=== PATIENT | male | born 1995 | race Caucasian/White ===

== ENCOUNTER 2021-10-05 22:09 | Emergency (ER) | payer SELFPAY ==
[2021-10-05 22:14] VITALS: BP 137/75
[2021-10-05] MEDS ORDERED: FAMOTIDINE 20 MG/2 ML INJ IV ONE (22:17)
[2021-10-05] MEDS ORDERED: methylPREDNISolone Sod Succinate 125 MG/2 ML INJ IM ONE (22:17)
[2021-10-05] MEDS ORDERED: diphenhydrAMINE 50 MG/ML VIAL IM ONE (22:17)
--- NOTE | 2021-10-05 22:50 | Emergency Department Report ---
HPI - General Chief Complaint: Allergic Reaction Time Seen by Provider: 10/05/21 22:26 - HPI HPI: Patient 26-year-old male with history of seasonal allergies and cocaine abuse. Who presents for hives and itching to bilateral arms and face. Patient advises unknown trigger trigger denies suspicious food as he had tacos as usual for dinner. Symptoms started approximately 2 hours ago. Symptoms are exacerbated by scratching. Relieved by nothing tried. Patient denies shortness of breath there is no chest pain no dizziness or lightheadedness. Primary symptom is itching and hives. Patient has not taking EpiPen at home. Symptoms are rated at 5/10 for allergic reaction. Course is similar to previous allergic reactions. Patient denies substance. ED Past Medical Hx - Past Medical History Additional medical history: allergies, Hives - Social History Smoking Status: Current Every Day Smoker Substance Use Type: Alcohol, Cocaine - Medications Home Medications: Home Medications Medication Instructions Recorded Confirmed Last Taken Type EPINEPHrine [Epipen 2-Mike] 0.3 mg IM PRN PRN #1 each 10/06/21 Unknown Rx Famotidine [Pepcid] 20 mg PO BID 7 Days #14 tablet 10/06/21 Unknown Rx diphenhydrAMINE [Benadryl CAP] 25 mg PO Q6HR PRN #30 capsule 10/06/21 Unknown Rx predniSONE [Deltasone] 40 mg PO QDAY 5 Days #10 tab 10/06/21 Unknown Rx ED Review of Systems ROS: Stated complaint: ALLERGIC REACTION Other details as noted in HPI Constitutional: denies: chills, fever, malaise Eyes: denies: eye pain, eye discharge, vision change ENT: denies: ear pain, throat pain Respiratory: denies: cough, shortness of breath, wheezing Cardiovascular: denies: chest pain, palpitations Endocrine: no symptoms reported Gastrointestinal: denies: abdominal pain, nausea, vomiting, diarrhea Genitourinary: denies: urgency, dysuria Musculoskeletal: denies: back pain, joint swelling, arthralgia Skin: denies: rash, lesions Neurological: denies: headache, weakness, numbness, paresthesias, confusion, vertigo Psychiatric: denies: anxiety, depression Hematological/Lymphatic: denies: easy bleeding, easy bruising Physical Exam - Physical Exam Vital Signs: Vital Signs 10/05/21 22:12 Temperature 97.4 F L Pulse Rate 113 H Respiratory 18 Rate Blood Pressure 137/75 [Left] O2 Sat by Pulse 100 Oximetry General: Patient alert oriented x3 respirations are even and nonlabored . Physical Exam: lungs sounds clear, there is no wheezing no stridor. No hives to bilateral arms and cheeks. Has a smooth mild erythema raised. There is no weeping no open skin no respiratory distress ED Course Vital Signs 10/05/21 22:12 Temperature 97.4 F L Pulse Rate 113 H Respiratory 18 Rate Blood Pressure 137/75 [Left] O2 Sat by Pulse 100 Oximetry - Reevaluation(s) Reevaluation #1: solumedrol, benadryl, pepcid IM, symptoms are improved, respirations even nonlabored. Patient is alert oriented x3 speaking in full sentences. 10/05/21 22:59 ED Medical Decision Making - Medical Decision Making Symptoms are resolved plan DC to home with prescriptions. EpiPen instructions completed. Patient will follow up with primary care doctor in 2 to 3 days. Patient will return to emergency department should symptoms worsen. Patient DC'd home in stable condition at this time. Patient is currently alert oriented x3 amatory with steady gait respirations are even and nonlabored. There is no wheezing no stridor. Critical care attestation.: If time is entered above; I have spent that time in minutes in the direct care of this critically ill patient, excluding procedure time. ED Disposition Clinical Impression: Allergic reaction Qualifiers: Encounter type: initial encounter Qualified Code(s): T78.40XA - Allergy, unspecified, initial encounter Disposition: HOME / SELF CARE / HOMELESS Is pt being admited?: No Does the pt Need Aspirin: No Condition: Stable Instructions: How to Use an Auto-Injector Pen, Allergies, Adult Additional Instructions: Take medications as prescribed, follow-up with your doctor in 2 to 3 days. Return to emergency department should symptoms worsen. Prescriptions: diphenhydrAMINE [Benadryl CAP] 25 mg PO Q6HR PRN #30 capsule PRN Reason: Itching hives predniSONE [Deltasone] 40 mg PO QDAY 5 Days #10 tab EPINEPHrine [Epipen 2-Mike] 0.3 mg IM PRN PRN #1 each PRN Reason: severe allergic reaction Famotidine [Pepcid] 20 mg PO BID 7 Days #14 tablet Referrals: PRIMARY CARE, [Primary Care Provider] - 3-5 Days GILDARDO HANNON MD [Referring] - 3-5 Days Forms: Work/School Release Form(ED) Time of Disposition: 00:21 Print Language: [place]
== END 2021-10-06 00:30 | disposition home or self-care (01) ==
LOC: ED 22:09
DX: T78.40XA Allergy, unspecified, initial encounter (principal); F17.200 Nicotine dependence, unspecified, uncomplicated; X58.XXXA Exposure to other specified factors, initial encounter
CPT/HCPCS: 96372; 96374; 99282; J1200; J2930; J3490